=== PATIENT | female | born 1980 ===

== ENCOUNTER 2024-12-18 10:14 | Inpatient (IN) | payer OTHER ==
[~2024-12-18] VITALS: Ht 170.2 cm; Wt 3.6 kg
[2025-01-02 04:58] VITALS: BP 114/78
[2025-01-02 05:52] VITALS: BP 114/78
[2025-01-02] MEDS ORDERED: AMPICILLIN SODIUM 1,000 MG VIAL ONE ×2 (06:52→11:08)
[2025-01-02] MEDS ORDERED: AMPICILLIN SODIUM 2,000 MG VIAL ONE (06:59)
[2025-01-02 07:04] LABS: HEMATOCRIT 38.5 % (36.0-45.00); HEMOGLOBIN 13.5 g/dL (12.0-15.00); MEAN CELL VOLUME 94.6 fL (80.00-100.00); MEAN CORPUSCULAR HEMOGLOBIN 33.2 pg (27.00-32.0); MEAN CORPUSCULAR HGB CONC 35.1 g/dl (32.0-36.0); PLATELET COUNT 184 K/uL (150-450); RED BLOOD COUNT 4.07 M/uL (4.00-6.00); RED CELL DISTRIBUTION WIDTH 14.6 % (11.5-14.5)
[2025-01-02] MEDS ORDERED: ADULT LOW DOSE81 M1 PO (07:06)
[2025-01-02] MEDS ORDERED: PRENATAL + DHA1 EAC1 PO (07:06)
[2025-01-02 07:07] LABS: INR < 0.93; PARTIAL THROMBOPLASTIN TIME 23.5 SECONDS (22.0-34.0); PROTHROMBIN TIME 10.2 SECONDS (9.0-11.5)
[2025-01-02] MEDS ORDERED: AMPICILLIN SODIUM 2,000 MG VIAL IV STA (07:21)
[2025-01-02] MEDS ORDERED: OXYTOCIN 20 UNITS/500ML RL PIGGYBAG IV ONE (07:29)
[2025-01-02] MEDS ORDERED: RINGERS SOLUTION,LACTATED 1,000 ML IV SCH (07:30)
[2025-01-02 07:41] LABS: ALBUMIN 2.5 gm/dL (3.4-5.0); BILIRUBIN TOTAL 0.37 mg/dL (0.3-1.2); CALCIUM 8.5 mg/dL (8.5-10.1); CREATININE SERUM 0.57 mg/dL (0.55-1.02); GFR 114.7; GLOBULINA 3.2 G/DL (2.4-3.5); POTASSIUM 4.11 mEq/L (3.5-5.1); TOTAL PROTEIN 5.7 gm/dL (6.4-8.2)
[2025-01-02] MEDS ORDERED: OXYTOCIN 500 ML IV ONE (07:45)
[2025-01-02 07:58] VITALS: BP 138/86
[2025-01-02] MEDS ORDERED: MORPHINE SULFATE 4 MG/ML VIAL IV ONE ×2 (11:00→16:40)
[2025-01-02 11:04] VITALS: BP 140/67
[2025-01-02] MEDS ORDERED: LIDOCAINE HCL 1% 10ML VIAL ONE (11:23)
[2025-01-02] MEDS ORDERED: OXYTOCIN 20 UNITS/1000ML RL PIGGYBAG IV ONE (11:23)
[2025-01-02] MEDS ORDERED: CHLORHEXIDINE GLUCONATE 120 ML BOTTLE TOP ONE (11:23)
[2025-01-02] MEDS ORDERED: ERYTHROMYCIN BASE OPHT 1GM EACH TUBE OP ONE ×2 (11:23→13:34)
[2025-01-02] MEDS ORDERED: AMPICILLIN SODIUM 1,000 MG VIAL IV SCH (12:00)
[2025-01-02] MEDS ORDERED: OXYTOCIN 10 UNITS/ML VIAL ONE ×2 (13:34→18:24)
[2025-01-02] MEDS ORDERED: CARBOPROST TROMETHAMINE 250 MCG/ML AMPUL IM ONE (14:53)
[2025-01-02] MEDS ORDERED: KETOROLAC TROMETHAMINE 30 MG VIAL IV NR (15:30)
[2025-01-02] MEDS ORDERED: OXYTOCIN 1,000 ML IV SCH (15:30)
[2025-01-02] MEDS ORDERED: MORPHINE SULFATE 4 MG/ML CARTRIDGE IV PRN (15:30)
[2025-01-02 18:51] VITALS: BP 137/79
[2025-01-03] VITALS: BP 109/70
[2025-01-03] MEDS ORDERED: IBUprofen 400 MG TABLET PO SCH (09:00)
[2025-01-03 09:20] VITALS: BP 135/86
[2025-01-03 10:20] LABS: HEMATOCRIT 33.7 % (36.0-45.00); HEMOGLOBIN 11.6 g/dL (12.0-15.00); MEAN CELL VOLUME 94.7 fL (80.00-100.00); MEAN CORPUSCULAR HEMOGLOBIN 32.6 pg (27.00-32.0); MEAN CORPUSCULAR HGB CONC 34.4 g/dl (32.0-36.0); PLATELET COUNT 165 K/uL (150-450); RED BLOOD COUNT 3.56 M/uL (4.00-6.00); RED CELL DISTRIBUTION WIDTH 14.4 % (11.5-14.5)
[2025-01-03 16:12] VITALS: BP 129/81
[2025-01-04 00:44] VITALS: BP 132/82
[2025-01-04] MEDS ORDERED: OxyCODONE HCL 5 MG TABLET (ROXICODONE) PO PRN (06:00)
[2025-01-04 09:16] VITALS: BP 125/82
[2025-01-04 15:53] VITALS: BP 124/79
[2025-01-05] VITALS: BP 129/80
[2025-01-05 08:16] VITALS: BP 140/84
[2025-01-05] MEDS ORDERED: BISACODYL 10 MG/SUPP.RECT SUPP.RECT RECTAL STA (10:20)
[2025-01-05] MEDS ORDERED: KETO10TA2 PO (10:26)
[2025-01-05] MEDS ORDERED: OXYCODONE HCL5 MG PO (10:26)
== END 2025-01-05 11:09 | disposition home or self-care (01) | DRG 788 ==
LOC: O/R 01-02 04:52 → LDR 01-02 04:52 → O/R 01-02 13:47 → LDR 01-02 14:00 → OB/GYN 01-02 16:31
PROVIDERS: Obstetrics & Gynecology; ADMIT Obstetrics & Gynecology Maternal & Fetal Medicine; ATTEND Obstetrics & Gynecology Maternal & Fetal Medicine
PROC: 4A1HXCZ Monitoring of Products of Conception, Cardiac Rate, External Approach (ICD-10-PCS; 2025-01-02)
PROC: 10D00Z1 Extraction of Products of Conception, Low, Open Approach (ICD-10-PCS; principal; 2025-01-02 14:48)
DX: O62.1 Secondary uterine inertia (principal); O33.5XX0 Maternal care for disproportion due to unusually large fetus, not applicable or unspecified; O69.81X0 Labor and delivery complicated by cord around neck, without compression, not applicable or unspecified; O36.63X0 Maternal care for excessive fetal growth, third trimester, not applicable or unspecified; Z3A.40 40 weeks gestation of pregnancy; Z37.0 Single live birth

== ENCOUNTER 2024-12-26 11:29 | Outpatient (CLI) | payer OTHER | END 2024-12-26 11:38 | disposition home or self-care (01) | LOC: NST 11:29 | PROVIDERS: ATTEND Obstetrics & Gynecology | DX: Z34.83 Encounter for supervision of other normal pregnancy, third trimester (principal) ==

== ENCOUNTER 2024-12-28 12:46 | Outpatient (CLI) | payer OTHER | END 2024-12-28 13:51 | disposition home or self-care (01) | LOC: NST 12:46 | PROVIDERS: ATTEND Obstetrics & Gynecology | DX: Z34.83 Encounter for supervision of other normal pregnancy, third trimester (principal) ==